=== PATIENT | female | born 1975 | race Caucasian/White ===

== ENCOUNTER → 2016-05-15 | Outpatient (CLI) | payer BC ==
[~2016-05-15] MED LIST: MTR600X PO; OXYC-57 PO; PRENTAB26 PO
[2016-05-15 12:49] LABS: URINE APPEARANCE CLEAR (CLEAR); URINE BILIRUBIN NEG (NEG); URINE COLOR YELLOW; URINE NITRITE NEG (NEG); URINE PH 6.5 (4.5-7.5); URINE SPECIFIC GRAVITY 1.008 (1.000-1.030); UROBILINOGEN NEG (NEG)
[2016-05-15 12:55] LABS: MANUAL MICROSCOPIC REQUIRED? NO; REVIEW REQ? NO
== END | disposition home or self-care (01) ==
LOC: C.LABSPEC 11:37
PROVIDERS: ATTEND Obstetrics & Gynecology
DX: O09.529 Supervision of elderly multigravida, unspecified trimester (principal)

== ENCOUNTER → 2016-05-28 | Outpatient (CLI) | payer BC ==
[2016-05-28 10:02] LABS: BASO % 0.2 %; BASO ABS # 0.02 K/uL (0-0.2); COMPLETE YES; EOS % 0.9 %; HEMATOCRIT 36.9 % (37-47); IG% 0.2 %; LYMPH % 15.5 %; LYMPH ABS # 1.25 K/uL (1.2-3.4); MEAN CELL VOLUME 93.9 fL (80-100); MEAN CORPUSCULAR HEMOGLOBIN 32.6 pg (25-34); MEAN CORPUSCULAR HGB CONC 34.7 g/dl (32-36); MEAN PLATELET VOLUME 10.2 fL (7.4-10.4); MONO % 4.8 %; NEUT % 78.4 %; PLATELET COUNT 261 K/uL (130-400); RED BLOOD COUNT 3.93 M/uL (4.2-5.4); WHITE BLOOD COUNT 8.09 K/uL (4.8-10.8)
[2016-05-31 11:57] LABS: CHLAMYDIA TRACH RNA*** NOT DETECTED (NOT DETECTED); GC (NEIS GONORRHOEAE)RNA** NOT DETECTED (NOT DETECTED)
== END | disposition home or self-care (01) ==
LOC: C.LAB1850 08:57
PROVIDERS: ATTEND Obstetrics & Gynecology
DX: O09.521 Supervision of elderly multigravida, first trimester (principal); Z3A.00 Weeks of gestation of pregnancy not specified

== ENCOUNTER → 2016-05-28 | Outpatient (CLI) | payer BC | END | disposition home or self-care (01) | LOC: C.PAPS 14:54 | PROVIDERS: ATTEND Obstetrics & Gynecology | DX: Z01.419 Encounter for gynecological examination (general) (routine) without abnormal findings (principal) ==

== ENCOUNTER → 2016-07-17 | Outpatient (CLI) | payer BC ==
[2016-07-17 12:20] LABS: GTGD 50 Grams
[2016-07-21 14:02] LABS: AFP MULTIPLE OF MEDIAN 2.23; AFPTS GESTATIONAL AGE 16.3 WEEKS; AFPTS INSULIN DEP DIABETIC? NO; AFPTS MATERNAL WT 116 LBS; ALPHA-FETOPROTEIN RACE CAUCASIAN=W; ESTRIOL MULTIPLE OF MEDIAN 1.48; HISTORY OF NTD NO; INHIBIN A 142 PG/ML; INHIBIN A MOM 0.73; REPEAT SAMPLE? NO; hCG MULTIPLE OF MEDIAN 0.93
== END | disposition home or self-care (01) ==
LOC: C.LAB1850 09:54
PROVIDERS: ATTEND Obstetrics & Gynecology
DX: O09.521 Supervision of elderly multigravida, first trimester (principal); Z3A.00 Weeks of gestation of pregnancy not specified

== ENCOUNTER → 2016-10-09 | Outpatient (CLI) | payer BC ==
[2016-10-09 11:37] LABS: HEMATOCRIT 34.2 % (37-47)
[2016-10-09 12:05] LABS: GTGD 50 Grams
[2016-10-09 12:36] LABS: URINE APPEARANCE CLEAR (CLEAR); URINE BILIRUBIN NEG (NEG); URINE COLOR DK YELLOW; URINE EPITHELIAL CELL AUTO >30 /lpf (0-5); URINE NITRITE NEG (NEG); URINE PH 7.5 (4.5-7.5); URINE SPECIFIC GRAVITY 1.017 (1.000-1.030); UROBILINOGEN NEG (NEG)
[2016-10-09 12:44] LABS: MANUAL MICROSCOPIC REQUIRED? NO; REVIEW REQ? NO
== END | disposition home or self-care (01) ==
LOC: C.LAB1850 09:36
PROVIDERS: ATTEND Obstetrics & Gynecology
DX: Z34.83 Encounter for supervision of other normal pregnancy, third trimester (principal)

== ENCOUNTER → 2016-12-03 | Outpatient (CLI) | payer BC | END | disposition home or self-care (01) | LOC: C.LABSPEC 16:30 | PROVIDERS: ATTEND Obstetrics & Gynecology | DX: O09.523 Supervision of elderly multigravida, third trimester (principal) ==

== ENCOUNTER 2016-12-25 06:57 | Inpatient (IN) | payer BC ==
--- NOTE | 2016-12-24 10:42 | PAT Medication Instructions ---
Service Date Dec 24, 2016. Current Home Medication List Multivit/Min/Iron/Fol Ac/Pren ( Vitamin), 1 TAB PO QAM Medication Instructions For Your Scheduled Surgery - Hold the following medications the morning of surgery: Multivit/Min/Iron/Fol Ac/Pren ( Vitamin), 1 TAB PO QAM If you have any questions please call us at [phone] or [phone] or [phone]
[2016-12-24 11:27] LABS: BASO % 0.3 %; BASO ABS # 0.04 K/uL (0-0.2); COMPLETE YES; EOS % 0.5 %; IG% 0.5 %; LYMPH % 19.4 %; LYMPH ABS # 2.79 K/uL (1.2-3.4); MEAN CORPUSCULAR HEMOGLOBIN 34.1 pg (25-34); MEAN CORPUSCULAR HGB CONC 34.1 g/dl (32-36); MEAN PLATELET VOLUME 10.4 fL (7.4-10.4); MONO % 6.3 %; PLATELET COUNT 242 K/uL (130-400); WHITE BLOOD COUNT 14.35 K/uL (4.8-10.8)
--- NOTE | 2016-12-24 13:53 | HISTORY & PHYSICAL EXAMINATION ---
DATE OF ADMISSION: 12/25/2016 ADMITTING DIAGNOSES: 1. Term . 2. Breech presentation. 3. Desired permanent surgical sterilization. ADMISSION HISTORY: The patient is a 41-year-old 2, para 1 with an EDC of 30 December by dates and first trimester ultrasound who is admitted for primary section for breech presentation. The patient was diagnosed in a breech presentation at 37 weeks gestational age. Treatment options were discussed with the patient and she has opted for a primary section. This course has been remarkable for an evaluation for advanced maternal age. The patient underwent first trimester cell free DNA testing which was negative. The patient also desires permanent surgical sterilization. She adamantly desires no further childbearing capacity and wishes to proceed. Laboratory values for the show a blood type of B positive, antibody negative, rubella nonimmune, hepatitis B negative. She had normal 1 hour Glucola x2 and a negative third trimester beta strep culture. PAST MEDICAL HISTORY: OBSTETRICAL: Vaginal delivery with fourth degree tear. 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 MEDICAL: None. SURGICAL: [place] teeth extractions. ALLERGIES: BACTRIM. SOCIAL HISTORY: No smoking. FAMILY HISTORY: Noncontributory. REVIEW OF SYSTEMS: As per HPI. ADMISSION PHYSICAL EXAMINATION: GENERAL: Shows a pleasant gravid female in no acute distress. VITAL SIGNS: Blood pressure 108/68, height of 5 feet 3 inches, a weight 134 pounds. HEAD, EYES, EARS, NOSE, AND THROAT EXAMINATION: Unremarkable. NECK: Supple. LUNGS: Clear. HEART: With a regular rhythm and rate. ABDOMEN: Gravid, breech presentation with positive heart tones, estimated weight of 7-1/2 pounds. PELVIC EXAMINATION: Showed to be 1 cm dilated, 50% effaced, and -2 station. EXTREMITY EXAMINATION: Shows no deep calf tenderness. NEUROLOGIC: Grossly intact. IMPRESSION: A 41-year-old 2, para 1 term , breech presentation, desire permanent surgical sterilization for primary section with bilateral tubal ligation. PLAN: The risks, benefits and alternatives to the surgery have been discussed. While the benefits will be delivery of the infant and permanent surgical sterilization, the risks are bleeding, infection, inadvertent injury to bowel or bladder, failure of the tubal ligation. The patient understands all the above. The permit has been signed and she wishes to proceed.
[~2016-12-25] VITALS: Ht 161.3 cm; Wt 65.5 kg
[~2016-12-25 06:57] MED LIST changes: +CEFAZOLIN 2000 MG/60 ML D5W 50 ML IV SCH; +CEFAZOLIN SOD 2000 MG in DEXTROSE 5% 50ML IV SCH; +CITRIC ACID/SODIUM CITRATE 15 ML UDC PO SCH; +LACTATED RINGER'S 1000ML 1,000 ML IV SCH; -MTR600X PO; -OXYC-57 PO
[2016-12-25 07:16] LABS: BASO % 0.3 %; BASO ABS # 0.03 K/uL (0-0.2); COMPLETE YES; EOS % 0.8 %; HEMATOCRIT 34.7 % (37-47); IG% 0.3 %; LYMPH % 21.6 %; LYMPH ABS # 2.42 K/uL (1.2-3.4); MEAN CELL VOLUME 100.9 fL (80-100); MEAN CORPUSCULAR HEMOGLOBIN 33.1 pg (25-34); MEAN CORPUSCULAR HGB CONC 32.9 g/dl (32-36); MONO % 6.6 %; NEUT % 70.4 %; PLATELET COUNT 247 K/uL (130-400); RED BLOOD COUNT 3.44 M/uL (4.2-5.4)
--- NOTE | 2016-12-25 07:17 | History & Physical Bridge Note ---
H&P Re-Evaluation Bridge Note: I have examined the patient, reviewed the History & Physical and in the interval since the performance of the History & Physical I have noted the following changes of clinical significance: No changes noted
[2016-12-25 07:52] VITALS: Ht 161.3 cm; Wt 65.5 kg
[2016-12-25] MEDS ORDERED: MoRPHine SULFATE PF 1 MG/ML 10 ML AMP/VIAL ONE (09:15)
[2016-12-25] MEDS ORDERED: OXYTOCIN INJ 10 UNITS/ML VIAL ONE (09:15)
[2016-12-25] MEDS ORDERED: FENTANYL CITRATE INJ 50 MCG/1 ML 2 ML VIAL ONE (09:15)
[2016-12-25] MEDS ORDERED: EpHEDrine SULFATE INJ 50 MG/ML AMP ONE (09:15)
[2016-12-25] MEDS ORDERED: ONDANSETRON INJ 2 MG/ML 2 ML VIAL ONE ×2 (10:08→10:57)
[2016-12-25] MEDS ORDERED: SUPERCREAM 0.870 % 15GM JAR EXT PRN (10:30)
[2016-12-25] MEDS ORDERED: BENZOCAINE 20% AER SPR 82.5 GM CAN EXT PRN (10:30)
[2016-12-25] MEDS ORDERED: HYDROCORTISONE ACETATE 25 MG SUPP PR PRN (10:30)
[2016-12-25] MEDS ORDERED: DIPHTHERIA/TETANUS/PERTUSSIS 0.5 ML SYR/VIAL IM. ONE (10:30)
[2016-12-25] MEDS ORDERED: LANOLIN OINT EXT PRN ×2 (10:30)
[2016-12-25] MEDS ORDERED: SODIUM CHLORIDE 0.9% 1000ML 1,000 ML IV PRN (10:34)
[2016-12-25] MEDS ORDERED: LACTATED RINGER'S 1000ML 500 ML IV PRN (10:34)
[2016-12-25] MEDS ORDERED: NALOXONE HCL INJ 0.08 MG in SYRINGE 1.8 ML IV PRN (10:34)
[2016-12-25] MEDS ORDERED: NALOXONE HCL INJ 1 MG in SODIUM CHLORIDE 0.9% 1000ML 1,000 ML IV PRN (10:34)
--- NOTE | 2016-12-25 10:36 | [facility] Post Operative Brief Note ---
Immediate Operative Summary Operative Date Dec 25, 2016. Pre-Operative Diagnosis 1) Breech Presentation at Term. 2) Desires Sterilization. Post-Operative Diagnosis Same as Preop Procedure(s) Performed 1) Primary C/S 2) Bilateral tubal ligation Surgeon Dr. Wyatt Director Of Quantitative Research Surgeon(s) Dr. Joseph Estimated Blood Loss 600 Findings viable male infant, Apgars 8/9; weight of 8lbs 3ozs, gasses pending, nml appearing tubes and ovaries bilaterally, bilateral segment of tube excised Fluids (cc crystalloids) 1000 Specimens Placenta (Hold) Cord Blood Portions of Right and Left Fallopian Tubes Cord Gases Drains Melendez to gravity Anesthesia Spinal Disposition L&D
--- NOTE | 2016-12-25 10:37 | Medical Student: [facility] ---
Immediate Operative Summary Operative Date Dec 25, 2016. Pre-Operative Diagnosis 1. IUP at 39 weeks + 2/7, 2. breech presentation 3. requests sterilization Post-Operative Diagnosis Same Procedure(s) Performed 1. Lower transverse Section 2. Bilateral tubal ligation Surgeon Dr. Wyatt Laborer Steel Handling Surgeon(s) Dr. Joseph & Madeleine Arshad, MS3 Estimated Blood Loss 600cc Findings Normal appearing gravid uterus, fallopian tubes, and ovaries. A viable male infant weighing 8lb 3oz. scores 8 and 9. Fluids (cc crystalloids) 700cc Specimens Placenta, cord blood, bilateral fallopian tube segments Drains 250cc from urinary Melendez catheter Anesthesia Spinal Complication(s) None Disposition L&D
[2016-12-25] MEDS ORDERED: ATROPINE SULFATE 0.1 MG/ML 5ML SYR IV PRN (10:45)
[2016-12-25] MEDS ORDERED: NALBUPHINE HCL INJ 10 MG/ML AMP IV PRN (10:45)
[2016-12-25] MEDS ORDERED: MoRPHine SULFATE PF 1 MG/ML 10 ML AMP/VIAL EPI PRN (10:45)
[2016-12-25] MEDS ORDERED: DiphenhydrAMINE HCL 50 MG/ML VIAL IV PRN ×2 (10:45)
[2016-12-25] MEDS ORDERED: KETOROLAC TROMETHAMINE 30 MG/ML VIAL IV. PRN (10:45)
[2016-12-25] MEDS ORDERED: MEPERIDINE HCL 25 MG/ML CARP IV PRN (10:45)
[2016-12-25] MEDS ORDERED: ONDANSETRON INJ 2 MG/ML 2 ML VIAL IV PRN ×2 (10:45)
[2016-12-25] MEDS ORDERED: NALOXONE HCL 0.4 MG/1 ML VIAL/CARP IV PRN (10:45)
[2016-12-25] MEDS ORDERED: EpHEDrine SULFATE INJ 50 MG/ML AMP IV PRN ×2 (10:45)
[2016-12-25] MEDS ORDERED: MoRPHine SULFATE 2 MG/ML CARP IV PRN (10:45)
[2016-12-25] MEDS ORDERED: PROMETHAZINE HCL INJ 12.5 MG in SODIUM CHLORIDE 0.9% 50ML 50 ML IV PRN ×4 (10:45)
--- NOTE | 2016-12-25 11:34 | OPERATIVE REPORT ---
DATE OF OPERATION: 12/25/2016 PREOPERATIVE DIAGNOSES: 1. Term . 2. Breech presentation. 3. Desired permanent surgical sterilization. POSTOPERATIVE DIAGNOSIS: Same. PROCEDURE PERFORMED: 1. Primary low cervical transverse section. 2. Bilateral tubal ligation. SURGEON: Dr. Wyatt. TELEVISION AGENT: Dr. Joseph. ANESTHESIA: Spinal. FINDINGS: Viable male with Apgars of 8 and 9, delivered from a katey breech presentation. Cord gases, cord blood samples obtained. Normal appearing tubes and ovaries bilaterally. Bilateral segment of fallopian tube removed and sent for pathological evaluation. PROCEDURE IN DETAIL: The patient was taken to the operating room and after spinal anesthesia was placed in supine position and draped and prepped in the usual fashion. Pfannenstiel type incision was made. Underlying subcutaneous tissue was dissected down to the ventral abdominal fascia, which was nicked and opened in a horizontal manner. Preperitoneal fascia was dissected away until the peritoneal cavity was entered and opened in a vertical manner. Bladder blade was placed. The peritoneum overlying the lower uterine segment was elevated, opened in a semi-lunar fashion, inferior margin of which was taken down creating the bladder flap. The uterus was entered sharply and extended in a semi-lunar fashion manually. Viable male from a katey breech presentation was delivered. Cord was clamped and cut and the baby was passed off to pediatrics who was in attendance for the delivery. Cord gases and cord blood samples were obtained. Placenta was delivered spontaneously and the uterus was exteriorized. The uterine cavity was wiped clean of any residual blood tissue and/or clot. Uterine incision was then closed with 2 layers of 4-0 Vicryl, the first a running locking stitch, the second an imbricating stitch. Dissection was then turned to the adnexa, fallopian tube was isolated on the right followed to the fimbriated end, a segment of which was elevated, doubly ligated with 0 plain suture, cut and removed from the field. In a similar fashion, the left fallopian tube was isolated followed to the fimbriated end, a segment of which was elevated, doubly ligated with 0 plain suture, cut and removed from the field. Hemostasis achieved and the uterus was returned to the pelvic cavity. The pericolic gutters were cleared bilaterally of any blood tissue and/or clot. The uterine incision as well as tubal incisions were inspected for hemostasis, which was present. Sponge and needle count was correct. The rectus muscle was then plicated in the midline with a running 2-0 Vicryl stitch. The fascia was closed laterally to the midline with a running 0 Vicryl suture. The subcutaneous tissue was irrigated with warm saline and skin incision was closed with a 4-0 Vicryl subcuticular stitch. Sterile dressing was applied and the patient was taken to the recovery room in satisfactory condition. I attest to the content of the Intraoperative Record and any orders documented therein. Any exception s are noted below.
--- NOTE | 2016-12-25 11:41 | Anesthesiology Progress Note ---
Anesthesia Post Op Note Date & Time Dec 25, 2016 at 11:41 Notes Mental Status: alert / awake / arousable, participated in evaluation Pt Amnestic to Procedure: Yes Nausea / Vomiting: adequately controlled Pain: adequately controlled Airway Patency, RR, SpO2: stable & adequate BP & HR: stable & adequate Hydration State: stable & adequate Neuraxial Anesthesia: was administered, sensory block is resolving Anesthetic Complications: no major complications apparent
[2016-12-25] MEDS ORDERED: ACETAMINOPHEN 1000 MG/100 ML IV IV ONE (12:00)
[2016-12-25] MEDS: OXYTOCIN INJ 20 UNITS in LACTATED RINGER'S 1000ML 1,000 ML IV SCH ×2 (12:40→21:24)
[2016-12-25] MEDS ORDERED: EpHEDrine SULFATE INJ 50 MG/ML AMP IM ONE (12:58)
[2016-12-25] MEDS ORDERED: METOCLOPRAMIDE HCL INJ 5 MG/ML 2 ML VIAL IV PRN (13:45)
[2016-12-25] MEDS ORDERED: DEXAMETHASONE SOD INJ 4 MG/ML VIAL IV PRN (13:45)
[2016-12-25] MEDS ORDERED: DEXAMETHASONE INJ 4 MG in SYRINGE 0 ML IV PRN (14:00)
[2016-12-25] MEDS ORDERED: SCOPOLAMINE 1.5 MG TDSY TD SCH (15:00)
[2016-12-25] MEDS ORDERED: CHECK SCOPOLAMINE PATCH PLACEMENT SCH (16:00)
[2016-12-25] MEDS ORDERED: LORAZEPAM 0.5 MG TAB ONE (16:47)
[2016-12-25] MEDS ORDERED: LORAZEPAM INJ 0.5 MG in SYRINGE 0.25 ML IV ONE (17:00)
[2016-12-25 19:45] VITALS: BP 102/62; PULSE 67; TEMP 36.4; O2SAT 97
[2016-12-25 20:45] VITALS: PULSE 74; TEMP 36.5; O2SAT 96; O2SAT 97
[2016-12-25 21:45] VITALS: O2SAT 96
[2016-12-25 22:45] VITALS: O2SAT 97
[2016-12-25 23:00] VITALS: BP 106/66; PULSE 82; TEMP 36.5; O2SAT 98
[2016-12-26] VITALS (13 sets, daily range): BP systolic 91–97; BP diastolic 55–58; PULSE 62–77; TEMP 36.7–37.2; O2SAT 94–99
[2016-12-26] MEDS ORDERED: NURSING VERBAL MED ORDER ONE (05:45)
[2016-12-26] MEDS ORDERED: LACTATED RINGER'S 1000ML 1,000 ML IV SCH (06:00)
[2016-12-26 06:51] LABS: BASO % 0.1 %; BASO ABS # 0.02 K/uL (0-0.2); COMPLETE YES; EOS % 0.1 %; HEMATOCRIT 29.3 % (37-47); IG% 0.4 %; LYMPH % 8.5 %; LYMPH ABS # 1.58 K/uL (1.2-3.4); MEAN CELL VOLUME 99.7 fL (80-100); MEAN CORPUSCULAR HGB CONC 33.1 g/dl (32-36); MEAN PLATELET VOLUME 10.1 fL (7.4-10.4); MONO % 5.2 %; NEUT % 85.7 %; PLATELET COUNT 223 K/uL (130-400); RED BLOOD COUNT 2.94 M/uL (4.2-5.4); WHITE BLOOD COUNT 18.55 K/uL (4.8-10.8)
--- NOTE | 2016-12-26 07:17 | Progress Note ---
Subjective Dec 26, 2016. Subjective conversation w/ patient, physical exam Ambulation: limited ambulation Voiding: bass catheter in place Feeding Type: Breast Feeding Objective Vital Signs Date Time Temp Pulse Resp B/P (MAP) Pulse Ox O2 Delivery O2 Flow Rate FiO2 12/26/16 06:15 18 97 12/26/16 05:30 18 94 12/26/16 04:30 18 96 12/26/16 03:35 18 96 12/26/16 03:33 37.2 77 18 97/57 (70) 96 Room Air 12/26/16 02:29 18 96 12/26/16 02:28 36.8 12/26/16 02:00 18 96 12/26/16 01:00 16 94 12/26/16 00:00 16 94 12/25/16 23:00 36.5 82 18 106/66 (79) 98 Room Air 12/25/16 23:00 18 98 12/25/16 23:00 Room Air 12/25/16 22:45 18 97 12/25/16 21:45 18 96 12/25/16 20:45 18 97 12/25/16 20:45 36.5 74 18 12/25/16 20:45 36.5 12/25/16 19:45 36.4 67 18 102/62 (75) 97 Room Air 12/25/16 19:45 Room Air Physical Exam General Appearance: WELL-APPEARING, NO APPARENT DISTRESS Respiratory/Chest: lungs clear Cardiovascular: regular rate, rhythm Fundus: Firm Incision Description: Clean, Dry & Intact (drressing removed) Extremities: no calf tenderness Laboratory Results Last 24 Hours Test 12/26/16 06:12 White Blood Count 18.55 K/uL Red Blood Count 2.94 M/uL Hemoglobin 9.7 g/dL Hematocrit 29.3 % Mean Corpuscular Volume 99.7 fL Mean Corpuscular Hemoglobin 33.0 pg Mean Corpuscular Hemoglobin Concent 33.1 g/dl Platelet Count 223 K/uL Mean Platelet Volume 10.1 fL Neutrophils (%) (Auto) 85.7 % Lymphocytes (%) (Auto) 8.5 % Monocytes (%) (Auto) 5.2 % Eosinophils (%) (Auto) 0.1 % Basophils (%) (Auto) 0.1 % Neutrophils # (Auto) 15.89 K/uL Lymphocytes # (Auto) 1.58 K/uL Monocytes # (Auto) 0.97 K/uL Eosinophils # (Auto) 0.02 K/uL Basophils # (Auto) 0.02 K/uL RDW Standard Deviation 52.5 fL RDW Coefficient of Variation 14.5 % Immature Granulocyte % (Auto) 0.4 % Immature Granulocyte # (Auto) 0.07 K/uL Assessment and Plan Post-Op Day#: 1 Continue Routine Care: - pt with post-op hypothermia yesterday - responded to Ativan - will begin ambulation and po pain meds - routine post c/s care - doing well
[2016-12-26] MEDS ORDERED: MTR600X PO (07:20)
[2016-12-26] MEDS ORDERED: OXYC-57 PO (07:20)
--- NOTE | 2016-12-26 07:21 | Discharge Instructions ---
Discharge Instructions Date of Service Dec 26, 2016. Admission Reason for Admission: Breech Presentation Discharge Discharge Diagnosis / Problem: same Discharge Goals Goal(s): Routine recovery after Medications Continue Dispensed Medications: supercream, dermaplast, tucks Activity Recommendations Activity Limitations: as noted below . Instructions / Follow-Up Instructions / Follow-Up ACTIVITY RECOMMENDATIONS: * Gradual return to full activity over the next 2-3 weeks. * No lifting - nothing heavier than baby over the next 2-3 weeks. * Do not engage in vigorous exercise, sexual activity or sports until cleared by your physician. * Do not drive or operate any motorized equipment until cleared by your physician. * You may shower/bathe daily. MEDICATIONS: For discomfort or pain, you may use Acetaminophen (Tylenol), Ibuprofen (Advil), or Naproxen (Aleve) following the package directions. For constipation you may use Colace following the package directions. BREAST CARE: If you are not breast feeding: * Wear a supportive bra 24 hours a day for one to two weeks. * Avoid stimulating your breasts and nipples as much as possible during the first few weeks after delivery. * When taking a shower, have the warm water hit your back, not breasts. * When your breasts feel full, apply ice packs. Usually three to four times a day helps ease the discomfort. * Take a mild pain medication (Tylenol / Motrin) when you are uncomfortable. If breast feeding: * Use breast milk to lubricate nipples. Lansinoh cream may be used for sore nipples. You do not need to remove cream prior to breast feeding. If using a different brand of cream, check the label for directions regarding removal of cream prior to nursing. * Wear a supportive bra. * If having problems with breasts or breast feeding, call a finance consultant or your health care provider. SPECIAL CARE INSTRUCTIONS: When you are discharged from the hospital, it is important for you to follow the instructions listed below: * During the first week at home, you should be able to care for yourself and your baby. In addition, the usual light household activities are encouraged. * Limit your activities to the way you feel. Do not try to clean the house or move furniture. Be sensible. * If you actively engage in sports and have done so up until the time of your delivery, you may resume these activities as soon as you feel able. This may take up to one month or even longer. Use good judgment. * Continue to take your vitamins for at least six weeks after the of your baby. * Your diet need not be limited unless you were on a special diet before your delivery. Breast-feeding mothers need around 2500 calories per day and at least 64-80 ounces of fluid per day (8 to 10 glasses). * You should eat foods from the four major food groups. Crash diets or fad diets are to be avoided. Eating lean meats, fresh fruits and vegetables, low-fat dairy products, high fiber foods and a regular exercise program, will help you get back to your pre- weight without putting your health at risk. * Constipation is sometimes a problem after delivery. Take a mild laxative as needed. If breast feeding, Milk of Magnesia is acceptable to use. You may use a suppository or Fleets enema. * A daily shower or tub bath is suggested. Wash incision daily with warm soapy water and pat dry. It doesn't need to be covered unless drainage is present. * A bloody vaginal discharge will usually continue until around four weeks . A small amount of bleeding may continue for as long as six weeks. Vaginal discharge changes from the bright red bleeding after delivery to pink then brownish and finally yellowish-pink before becoming white and disappearing. * Bleeding may increase with activity. Your first period may come in 4-8 weeks. If you are breast feeding, your period may be delayed even longer. * [place] (sex) can begin whenever both you and your partner feel comfortable and do not have any form of genital infection. It is recommended that you wait at least six weeks for internal and external healing to occur. If you have questions, please talk to your health care practitioner. A condom should be used to prevent infection and . * Foreplay, gentle intercourse and lubrication is very important the first several times to prevent pain. A water-based lubricant such as K-Y jelly or Astroglide may be used. * If you have RH negative blood and your baby is RH positive, you will receive RHOGAM by injection prior to discharge. The nurse will give you a card to keep with you that has the date and place that you received RHOGAM after delivery. * During your care, you had a Rubella screen done to check for the presence of rubella antibodies in your blood. If your test was negative, you will receive a Rubella vaccine prior to discharge. This vaccine may cause a fever, soreness at the injection site and flu-like symptoms. If these symptoms persist, notify your health care practitioner. is not advised for one month after a Rubella vaccine. * Verbalizes understanding of car seat law as reviewed with patient nursing. * Car Seat hand-out given and reviewed with patient by nursing. * Shaken baby information reviewed with patient by nursing. Call you doctor if: * Heavy bleeding (saturating several pads an hour) or passing clots the size of your fist. * A fever >101 degrees F (38.3 degrees C) on two occasions four hours apart and /or chills. * Unusual pain in the pelvic or vaginal areas. * Call the doctor for any increased redness, drainage or swelling around the incision and any pain unrelieved by prescribed pain medication. * "Baby Blues" lasting longer than two weeks. If you have any questions or concerns, call your health care practitioner at . FOLLOW UP VISIT: * Please call the office at to schedule a 6 week examination. It is important you keep this appointment. It is important for you to make arrangements for either yearly or twice yearly check-ups thereafter. Current Hospital Diet Patient's current hospital diet: Clear Liquid Diet Discharge Diet Recommended Diet: Regular Diet Procedures Procedures Performed: 1) Primary C/S 2) Bilateral tubal ligation Pending Studies Studies pending at discharge: yes List of pending studies: Pathology Medical Emergencies . Who to Call and When: Medical Emergencies: If at any time you feel your situation is an emergency, please call [phone] immediately. . Non-Emergent Contact Non-Emergency issues call your: Science Technician Call Non-Emergent contact if: you have a fever, temperature is above 100.5, your pain is not controlled, your pain is worsening, wound has increased drainage, wound has increased redness, wound has increased pain . . "Provider Documentation" section prepared by Raulito Wyatt. . VTE Core Measure Inpt VTE Proph given/why not?: SCD's [place] Drug Monitoring Program Search Results: patient reviewed within database, no issues identified
[2016-12-26] MEDS: FERROUS SULFATE 325 MG TAB PO SCH (08:00)
[2016-12-26] MEDS ORDERED: ONDANSETRON INJ 2 MG/ML 2 ML VIAL IV PRN ×2 (08:15→15:30)
[2016-12-26] MEDS ORDERED: KETOROLAC TROMETHAMINE 30 MG/ML VIAL IV. PRN ×2 (08:15→15:30)
[2016-12-26] MEDS ORDERED: DiphenhydrAMINE HCL 50 MG/ML VIAL IV PRN ×2 (08:15→15:30)
[2016-12-26] MEDS ORDERED: OXYCODONE/ACETAMINOPHEN 5-325 TAB PO PRN ×3 (08:15→15:30)
[2016-12-26] MEDS: IBUPROFEN 600 MG TAB PO PRN ×3 (11:12→22:20)
[2016-12-26] MEDS ORDERED: NO NARCOTICS OR SEDATIVES SCH (15:30)
[2016-12-26] MEDS ORDERED: DC INTRASPINAL MORPHINE SCH (15:30)
[2016-12-26] MEDS ORDERED: ACETAMINOPHEN 325 MG TAB PO PRN (16:15)
[2016-12-26] MEDS ORDERED: ACETAMINOPHEN 325 MG TAB ONE (16:24)
[2016-12-26] MEDS ORDERED: SENNA 8.6 MG TAB PO SCH (22:00)
[2016-12-26] MEDS ORDERED: MAGNESIUM HYDROXIDE SUSP 30 ML UDC PO SCH (22:00)
[2016-12-27] MEDS: IBUPROFEN 600 MG TAB PO PRN ×2 (03:10→07:56)
[2016-12-27 06:47] LABS: HEMATOCRIT 27.8 % (37-47)
--- NOTE | 2016-12-27 07:21 | Progress Note ---
Subjective Dec 27, 2016. Subjective conversation w/ patient, physical exam, lab review Ambulation: ambulating normally Voiding: no voiding problems Passing Gas: Yes Diet Tolerance: Regular Diet Lochia: Small Feeding Type: Bottle Feeding Pain: fairly well controlled with tylenol and motrin, has declined narcotics. Objective Vital Signs Date Time Temp Pulse Resp B/P (MAP) Pulse Ox O2 Delivery O2 Flow Rate FiO2 12/26/16 23:20 36.9 77 20 95/58 (70) 98 Room Air 12/26/16 23:20 98 Room Air 12/26/16 16:33 37.0 62 16 92/58 (69) 98 Room Air 12/26/16 15:00 Room Air 12/26/16 08:00 36.7 73 20 91/55 (67) 99 Room Air 12/26/16 08:00 20 99 Physical Exam General Appearance: WELL-APPEARING, WD/WN, NO APPARENT DISTRESS Abdomen: non tender, soft Fundus: Firm, Non-Tender, Relation to Umbilicus (2 below u) Incision Description: Clean, Dry & Intact Extremities: non-tender, normal inspection Laboratory Results Last 24 Hours Test 12/27/16 06:30 Hemoglobin 9.1 g/dL Hematocrit 27.8 % Assessment and Plan Post-Op Day#: 2 Continue Routine Care: Doing well. Desires d/c today. Discussed pain management, does have script for percocet. Discussed that she may need at home and ok with baby. Instructions given.
[2016-12-27 07:45] VITALS: BP 96/63; PULSE 90; TEMP 36.9
[2016-12-27] MEDS: OXYCODONE/ACETAMINOPHEN 5-325 TAB PO PRN ×3 (07:56→13:04)
[2016-12-27] MEDS: FERROUS SULFATE 325 MG TAB PO SCH (08:00)
[2016-12-27 13:00] VITALS: BP_DIAS 63; PULSE 90; TEMP 36.9
--- NOTE | 2016-12-28 08:13 | DISCHARGE SUMMARY ---
ADMITTING DIAGNOSES: 1. Term . 2. Breech presentation. 3. Desired permanent surgical sterilization. DISCHARGE DIAGNOSES: Same. PROCEDURES PERFORMED: Primary low cervical transverse section. DISCHARGE MEDICATIONS: 1. Percocet 5/325 1-2 p.o. q. 4-6 hours p.r.n. pain. 2. Motrin 600 mg p.o. q. 6 hours p.r.n. pain. ADMISSION HISTORY: The patient is a 41-year-old 2, para 1 with an EDC of 30 December by dates and first trimester ultrasound who is admitted for primary section for breech presentation. The patient was diagnosed in a breech presentation at 37 weeks gestational age. Treatment options were discussed and the patient has opted for primary section. The patient's course remarkable for evaluation for advanced maternal age. The patient underwent first trimester cell free DNA testing which was negative. The patient also desires permanent surgical sterilization. She adamantly desires no further childbearing capacity and wishes to proceed. Laboratory values for the show a blood type of B positive, antibody negative, rubella nonimmune, hepatitis B negative. She had a normal 1 hour Glucola x2 and a negative third trimester beta strep culture. PHYSICAL EXAMINATION: GENERAL: Shows a pleasant gravid female in no acute distress. VITAL SIGNS: Blood pressure 108/68, height of 5 feet 3 inches and weight of 134 pounds. HEENT: Unremarkable. NECK: Supple. LUNGS: Clear. HEART: With a regular rhythm and rate. ABDOMEN: Gravid, breech. Positive heart tones, estimated weight of 7-1/2 pounds. PELVIC: Shows the cervix to be 1 cm dilated, 50% effaced, and -2 station. EXTREMITIES: Shows no deep calf tenderness. NEUROLOGIC: Grossly intact. ADMISSION LABORATORY VALUES: Showed an H&H of 11.6 and 34.0. HOSPITAL COURSE: On day of admission, patient was taken to the operating room where she underwent the above listed procedures. Operative findings revealed a viable male infant with Apgars of 8 and 9, weight of 8 pounds 3 ounces, normal appearing tubes and ovaries bilaterally. Bilateral segment of fallopian tube excised and removed. Postoperatively, the patient did well. She had an episode of hypothermia on the day of the surgery which responded to benzodiazepines managed through anesthesia. On the 1st postoperative day, her Melendez catheter was removed. H&H came back at 9.7 and 29.3. By the 3rd postoperative day the patient was ambulating without difficulty and tolerating a regular diet. She was discharged home with the routine discharge instructions and the prescriptions for the medications as listed as above. She will follow up in the office in 2 weeks' time for a postoperative check but as always she has been instructed to call with any questions, problems or difficulties.
== END 2016-12-27 13:40 | disposition home or self-care (01) | DRG 766 ==
LOC: C.LD 06:57 → EDSTATUS 09:00 → C.OBG 19:55
PROVIDERS: ADMIT Obstetrics & Gynecology; ATTEND Obstetrics & Gynecology
PROC: 0U570ZZ Destruction of Bilateral Fallopian Tubes, Open Approach (ICD-10-PCS; principal; 2016-12-25 09:00)
PROC: 10D00Z1 Extraction of Products of Conception, Low, Open Approach (ICD-10-PCS; principal; 2016-12-25 09:00)
DX: O32.1XX1 Maternal care for breech presentation, fetus 1 (principal); Z30.2 Encounter for sterilization; Z3A.39 39 weeks gestation of pregnancy; O09.523 Supervision of elderly multigravida, third trimester

== ENCOUNTER → 2017-08-24 | Outpatient (CLI) | payer OTHER ==
[~2017-08-24] MED LIST changes: -CEFAZOLIN 2000 MG/60 ML D5W 50 ML IV SCH; -CEFAZOLIN SOD 2000 MG in DEXTROSE 5% 50ML IV SCH; -CITRIC ACID/SODIUM CITRATE 15 ML UDC PO SCH; -LACTATED RINGER'S 1000ML 1,000 ML IV SCH; +MTR600X PO; +OXYC-57 PO
[2017-08-24 10:48] LABS: BASO % 0.3 %; BASO ABS # 0.02 K/uL (0-0.2); EOS % 2.3 %; EOS ABS # 0.14 K/uL (0-0.5); HEMATOCRIT 41.1 % (37-47); HEMOGLOBIN 14.2 g/dL (12.0-16.0); LYMPH % 20.2 %; LYMPH ABS # 1.25 K/uL (1.2-3.4); MEAN CELL VOLUME 94.1 fL (80-100); MEAN CORPUSCULAR HEMOGLOBIN 32.5 pg (25-34); MEAN CORPUSCULAR HGB CONC 34.5 g/dl (32-36); MEAN PLATELET VOLUME 10.3 fL (7.4-10.4); MONO ABS # 0.31 K/uL (0.11-0.59); NEUT % 72.2 %; NEUT ABS # 4.47 K/uL (1.4-6.5); PLATELET COUNT 221 K/uL (130-400); RED CELL DISTRIBUTION WIDTH CV 13.2 % (11.5-14.5); RED CELL DISTRIBUTION WIDTH SD 45.4 fL (36.4-46.3); WHITE BLOOD COUNT 6.19 K/uL (4.8-10.8)
== END | disposition home or self-care (01) ==
LOC: C.LABBC 09:12
PROVIDERS: ATTEND Family Medicine Adult Medicine
DX: D64.9 Anemia, unspecified (principal); R43.2 Parageusia